=== PATIENT | male | born 1965 | race Caucasian/White ===

== ENCOUNTER 2019-02-16 11:13 | Emergency (ER) | payer OTHER ==
[~2019-02-16] VITALS: Ht 175.3 cm; Wt 72.6 kg
[2019-02-16 11:26] VITALS: BP 161/85
[2019-02-16] MEDS ORDERED: CHLO15MO2 PO (11:38)
[2019-02-16] MEDS ORDERED: AMOX1TAB61 PO (11:38)
--- NOTE | 2019-02-16 11:39 | PHYS DOC ---
Past Medical History Past Medical History: No Pertinent History Past Surgical History: No Surgical History Additional Information: Nonsmoker Alcohol Use: Occasionally Drug Use: None Adult General Chief Complaint Chief Complaint: DENTAL PROBLEM HPI HPI 53-year-old male presents with report of being at work when a piece of metal he was working on ended up swing down and striking him in the mouth approximately 30 min prior to arrival. Denies LOC. Denies neck pain. Reports he ended up "spitting out some blood and a piece of his tooth." Patient is concerned that he tooth might be loose. Reports some laceration to is upper lip. Denies nausea or vomiting. Denies other injury. Review of Systems Review of Systems Constitutional: Denies fever or chills [] Eyes: Denies change in visual acuity, redness, or eye pain [] HENT: Denies epistaxis and tooth fracture Musculoskeletal: Denies back pain or joint pain [] Integument: Denies rash; left upper lip laceration Neurologic: Denies headache, focal weakness or sensory changes [] Complete systems were reviewed and found to be within normal limits, except as documented in this note. Current Medications Current Medications Current Medications Medications (Trade) Dose Ordered Sig/Tenzin Start Time Stop Time Status Last Admin Dose Admin Amoxicillin/ Clavulanate Potassium (Augmentin 875/ 125mg) 1 tab STK-MED ONCE 02/16/19 11:47 02/16/19 11:48 DC Ketorolac Tromethamine (Toradol 30mg Vial) 30 mg STK-MED ONCE 02/16/19 11:48 02/16/19 11:49 DC Allergies Allergies Allergies Coded Allergies Type Severity Reaction Last Updated Verified No Known Drug Allergies 02/16/19 No Physical Exam Physical Exam Constitutional: Well developed, well nourished, no acute distress, non-toxic appearance. [] HENT: Normocephalic, atraumatic, bilateral external ears normal, oropharynx moist, partial fracture of lateral-inferior aspect of left maxillary 1st premolar, tooth is stable on palpation, no gingival involvement or bruising noted Eyes: PERRL, EOMI, conjunctiva normal, no discharge. [] Neck: Normal range of motion, no midline tenderness, supple Cardiovascular: Heart rate normal with regular rhythm Respiratory: No distress, bilateral lung sounds to auscultation Skin: Warm, dry, 1cm left upper lip laceration to mucosal surface without extension to fernando border Extremities: No tenderness,ROM intact Neurologic: Alert and oriented X 3, normal motor function, normal sensory function, no focal deficits noted. [] Psychologic: Affect normal, judgement normal, mood normal. [] Current Patient Data Vital Signs Vital Signs Date Time Temp Pulse Resp B/P (MAP) Pulse Ox O2 Delivery O2 Flow Rate FiO2 02/16/19 11:26 98.5 107 18 161/85 (110) 99 Room Air 98.5 EKG EKG [] Radiology/Procedures Radiology/Procedures [] Course & Med Decision Making Course & Med Decision Making Patient presents with blunt trauma causing partial tooth fracture while at work. Patient denies LOC or neck pain. Patient neurologically intact. Small mucosal lip laceration which does not extend onto fernando border. No suture repair warranted. Tooth stable. Empiric antibiotics given. Pain addressed with IM Ketoralac. Offered dental block which patient declined. Patient advised of need to follow closely with dentist for definitive treatment. 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 Patient advises approval for discussion of plan and treatment in front of this individual. Patient and coal yard supervisor requested UDS. Both advised that UDS in ED is for medical management and not set-up for legal purposes. Offered happy to run test but may require repeat testing at appropriate facility for legal laboratory testing. Decision to hold UDS testing at this time. Patient stable for discharge with outpatient follow-up with PCP/Dentist. Discussed findings and plan with patient and coal yard supervisor, who acknowledge understanding and agreement. Dragon Disclaimer Dragon Disclaimer This electronic medical record was generated, in whole or in part, using a voice recognition dictation system. Departure Departure Impression: Primary Impression: Tooth fracture Additional Impression: Lip laceration Disposition: HOME, SELF-CARE Condition: STABLE Patient Instructions: Mouth Laceration, [id number], Tooth Fracture Additional Instructions: Use over the counter Ibuprofen and Tylenol for pain or discomfort. Scripts Chlorhexidine Gluconate (PERIDEX) 15 Ml Mouthwash 15 ML PO BID, #946 ML Prov: QUENTIN LEDBETTER DO 02/16/19 Amoxicillin/Potassium Clav (AUGMENTIN 875-125 TABLET) 1 Each Tablet 1 TAB PO BID, #14 TAB Prov: QUENTIN LEDBETTER DO 02/16/19 Problem Qualifiers Primary Impression: Tooth fracture Encounter type: initial encounter Fracture type: open Qualified Codes: S02.5XXB - Fracture of tooth (traumatic), initial encounter for open fracture Additional Impression: Lip laceration Encounter type: initial encounter Qualified Codes: S01.511A - Laceration w ithout foreign body of lip, initial encounter QUENTIN LEDBETTER DO February 16, 2019 11:39
[2019-02-16] MEDS ORDERED: AMOXICILLIN/K CLAV 875/125MG TABLET. ONE (11:47)
[2019-02-16] MEDS ORDERED: KETOROLAC 30 MG/ML VIAL. ONE (11:48)
[2019-02-16] MEDS ORDERED: KETOROLAC 30 MG/ML VIAL. IM ONE (12:00)
[2019-02-16] MEDS ORDERED: AMOXICILLIN/K CLAV 875/125MG TABLET. PO ONE (12:00)
== END 2019-02-16 12:00 | disposition home or self-care (01) ==
LOC: ER 11:13
DX: S02.5XXA Fracture of tooth (traumatic), initial encounter for closed fracture (principal); S01.511A Laceration without foreign body of lip, initial encounter; W22.8XXA Striking against or struck by other objects, initial encounter; Y93.89 Activity, other specified; Y92.89 Other specified places as the place of occurrence of the external cause; Y99.0 Civilian activity done for income or pay
CPT/HCPCS: 96372; 99283; J1885